=== PATIENT | male | born 1980 | race Caucasian/White ===

== ENCOUNTER 2024-10-03 08:54 | Emergency (ER) | payer SELFPAY ==
[2024-10-03 09:05] VITALS: BP 175/100; PULSE 84; TEMP 36.6; O2SAT 100; BMI 28.4
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
[2024-10-03] MEDS: SILVER SULFADIAZINE 1% CREAM 25 GM TUBE 1 APPLIC TOPICAL ×3 (10:17→10:49)
== END 2024-10-03 10:54 | disposition home or self-care (01) ==
PROVIDERS: Emergency Provider Emergency Medicine
DX: T24.232A Burn of second degree of left lower leg, initial encounter (principal); T24.231A Burn of second degree of right lower leg, initial encounter; X03.8XXA Other exposure to controlled fire, not in building or structure, initial encounter
CPT/HCPCS: 99282